=== PATIENT | female | born 1955 | race Caucasian/White ===

== ENCOUNTER 2018-01-20 05:48 | Day surgery (SDC) | payer MEDICARE, OTHER ==
[2018-01-20 06:30] VITALS: TEMP 97.6; O2SAT 97
[2018-01-20] MEDS ORDERED: Propofol 10 mg/ml Inj (20 ML) ONE ×2 (07:22→08:23)
[2018-01-20] MEDS ORDERED: Midazolam 2 MG/2 ML VIAL ONE ×2 (07:22→08:07)
[2018-01-20] MEDS ORDERED: Bupivacaine HCl 0.5% PF (30 ml) Inj ONE (07:24)
[2018-01-20] MEDS ORDERED: Lidocaine 2% MPF (5 ml) Inj ONE (07:25)
[2018-01-20] MEDS ORDERED: ceFAZolin 1 gm in NS 2 GM/200 ML BAG IVPB ONE (07:25)
[2018-01-20] MEDS ORDERED: HYDROmorphone 0.5 mg/0.5 ml ISec IVP PRN (09:09)
--- NOTE | 2018-01-20 09:10 | PCM.SURG1 ---
Surgeon's Initial Post Op Note - Surgeon's Notes Surgeon: Dr. Diallo Laboratory Coordinator: Praneeth Beaulieu PGY-3 Type of Anesthesia: IV Sedation, Local Pre-Operative Diagnosis: Left foot 2nd, 3rd digits hammer toe deformity, nerve entrapment between 3rd and 4th digit inter sapce, 4th digit hammer toe deformity Operative Findings: See dictation Post-Operative Diagnosis: same Operation Performed: Left foot 2nd and 3rd digit hammer toe correction with k wire, nerve decompression of 3rd interdigit space of left foot, 4th extensor tendon tenotomy Specimen/Specimens Removed: left foot 2nd and 3rd digit bone Estimated Blood Loss: EBL {In ML}: 3 Blood Products Given: N/A Drains Used: No Drains Post-Op Condition: Good Date of Surgery/Procedure: 01/20/18 Time of Surgery/Procedure: 08:00
[2018-01-20] MEDS ORDERED: Oxycodone/Acetaminophen 5/325 mg Tab PO PRN ×2 (09:13)
--- NOTE | 2018-01-20 10:24 | RAD ---
PROCEDURE: Left Foot Radiographs. HISTORY: s/p left foot sx COMPARISON: None. FINDINGS: BONES: No acute fractures identified at the s/p arthrodesis of the interphalangeal joints of the 2nd and 3rd digits transfixed by solitary wires in each digit. Diffuse osteopenia suggests osteoporosis. Remaining joint reflect degenerative sclerosis diffusely throughout the do's and remaining joints of the remainder of the foot. Moderate soft tissue edema is seen throughout the forefoot best appreciated in the lateral view. . JOINTS: As above. SOFT TISSUES: As above. OTHER FINDINGS: None. IMPRESSION: Status post arthrodesis of the 2nd and 3rd digit proximal and distal interphalangeal joints. No no fracture or spondylolisthesis identified. Diffuse osteopenia suggests osteoporosis a degenerative changes are as described above.
--- NOTE | 2018-01-20 11:46 | CP.PCM.CON ---
History of Present Illness - History of Present Illness History of Present Illness: Orthopedic consultation Dr. Amador 62F complains of right middle finger pain after she jammed it in SDS moving onto stretcher pre op. She says her finger still hurts, and she says she can not straighten in. No prior finger pain or injury. She says prior to today, she had normal function fo her finger. RHD. Patient underwent hammertoe surgery with Dr. Gaming today. Review of Systems - Review of Systems All systems: reviewed and no additional remarkable complaints except - Musculoskeletal Musculoskeletal: As Per HPI Past Patient History - Past Medical History & Family History Past Medical History?: Yes Past Family History: Reviewed and not pertinent - Past Social History Smoking Status: Current Some Days Smoker - PULMONARY Hx Respiratory Disorders: Yes Hx Asthma: Yes (NEVER HOSPITALIZED) - HEENT Hx HEENT Problems: Yes Hx Glaucoma: Yes - ENDOCRINE/METABOLIC Hx Endocrine Disorders: Yes Other/Comment: HX: RECENT RIGHT THYROID NODULE-BEING WATCHED- NO BIOPSY YET( TODAY IS 01/13/18) - HEMATOLOGICAL/ONCOLOGICAL Hx Blood Disorders: Yes Hx Hepatitis C: Yes (TREATMENT DONE) - INTEGUMENTARY Hx Dermatological Problems: Yes Other/Comment: HX: "SORES IN MOUTH/LIPS ON AND OFF-I THINK IT'S HERPES THEY SAY( -NO SORES PRESENTLY 01/13/18). HX: CYSTS IN BREAST BILAT. - MUSCULOSKELETAL/RHEUMATOLOGICAL Hx Musculoskeletal Disorders: Yes Hx Fractures: Yes (1ST TOE LEFT FOOT) Other/Comment: HX: HEEL SPUR LEFT FOOT. HX: PAINFUL TOES LEFT FOOT AFTER "CYST REMOVED FROM BOTTOM OF FOOT NEAR TOES" - GASTROINTESTINAL Hx Gastrointestinal Disorders: Yes Hx Gall Bladder Disease: Yes Hx Gastritis: Yes - PSYCHIATRIC Hx Psychophysiologic Disorder: Yes Hx Anxiety: Yes Hx Depression: Yes - SURGICAL HISTORY Hx Surgeries: Yes Hx Breast Biopsy: Yes (BILAT.-NO CANCER) Hx Cholecystectomy: Yes Hx Orthopedic Surgery: Yes Other/Comment: HX: SURGERY LEWFT FOOTFOR HEEL SPUR. HX: SURGERY LEFT 1ST TOE FX. -NO METAL IN PLACE. HX: COLON POLYPECTOMY - ANESTHESIA Hx Anesthesia: Yes Hx Anesthesia Reactions: No Hx Malignant Hyperthermia: No Has any member of the family had a problem w/ anesthesia?: No Meds Allergies/Adverse Reactions: Allergies Allergy/AdvReac Type Severity Reaction Status Date / Time aspirin AdvReac Severe NAUSEA Verified 01/13/18 09:05 seafood Allergy SWELLING Uncoded 01/20/18 06:13 - Medications Medications: Current Medications Acetaminophen (Tylenol 325mg Tab) 650 mg PO Q6 PRN PRN Reason: Pain, Mild (1-3) Oxycodone/Acetaminophen (Percocet 5/325 Mg Tab) 1 tab PO Q4H PRN PRN Reason: Pain, moderate (4-7) Stop: 01/23/18 09:14 Oxycodone/Acetaminophen (Percocet 5/325 Mg Tab) 2 tab PO Q4H PRN PRN Reason: Pain, severe (8-10) Stop: 01/23/18 09:14 Physical Exam - Constitutional Appears: Well, No Acute Distress - Head Exam Head Exam: ATRAUMATIC - Neck Exam Neck exam: Positive for: Full Rom - Respiratory Exam Respiratory Exam: NORMAL BREATHING PATTERN - Cardiovascular Exam Additional comments: +radial pulse cap refill <2 sec right long finger - Extremities Exam Additional comments: sensation intact DIP joint right middle finger in flexed position TTP to middle finger DIP joint and ring finger DIP joint, minimal swelling to middle DIP joint, no erythema, skin intact unable to actively extend DIP joint middle finger, can extend against resistance at PIP joint extension intact to ring finger, no swelling flexion intact to MCP/DIP/PIP joints - Neurological Exam Neurological exam: Alert, Oriented x3 - Psychiatric Exam Psychiatric exam: Normal Affect, Normal Mood - Skin Skin Exam: Dry, Intact, Normal Color, Warm Results - Vital Signs Recent Vital Signs: Last Vital Signs Temp 97.6 F 01/20/18 05:55 Pulse 68 01/20/18 05:55 Resp 20 01/20/18 05:55 BP 122/79 01/20/18 05:55 Pulse Ox 97 01/20/18 05:55 - Impressions Impression: RIght hand 3 views reviewed AP/LAt/oblique however middle finger was left in flexed position so no true AP of finger. No fracture or dislocation appreciated. Assessment & Plan (1) Mallet deformity of right middle finger Assessment and Plan: splinted in hyperextension advised patient that she will require a period of prolonged immobilization vs surgery to regain extension of finger, and follow up with orthopedic surgeon as outpatient is necessary to avoid permanent deformity elevation keep splint intact at all times, do not let finger flex Dr. Amador recommends f/u with hand specialist within one week, discussed with patient and she agrees to plan d/w Dr. Amador, agrees with above Status: Acute (2) Sprain of interphalangeal joint of right ring finger Assessment and Plan: mild, no immobilization indicated Status: Acute
[2018-01-20 12:33] VITALS: RESP 18
--- NOTE | 2018-01-20 13:43 | RAD ---
Right hand 3rd digit three views History: Pain. Comparison: None available. Findings: Soft tissue swelling at the level of the 3rd digit dorsally. Fixed flexion at the level of the right 3rd DIP joint space. No evidence of acute displaced fracture or dislocation. Narrowing of the 2nd through 5th PIP and DIP joint spaces. Negative ulnar variance. Degenerative changes of the radiocarpal joint space. Impression: Soft tissue swelling at the level of the 3rd digit dorsally. Fixed flexion at the level of the right 3rd DIP joint space. No evidence of acute displaced fracture or dislocation. Narrowing of the 2nd through 5th PIP and DIP joint spaces. Negative ulnar variance. Degenerative changes of the radiocarpal joint space. If pain persists, consider further evaluation with MRI.
[2018-01-20 13:52] VITALS: BP 132/55; PULSE 62
--- NOTE | 2018-01-20 22:37 | PCM.OP ---
Operative Report - Operative Report Date of Surgery/Procedure: 01/20/18 Time of Surgery/Procedure: 08:00 Surgeon: Dr. Yoel DPM Acoustics Teacher: Praneeth Beaulieu PGY-3 Anesthesia/Sedation: IV sedation with Local Pre-Operative Diagnosis: #1. Left foot painful 2nd digit hammertoe deformity # 2. Left foot painful 3rd digit hammertoe deformity #3. Left foot painful 4th digit hammer toe deformity#4. Left foot 3rd inter digit space nerve entrapment Post-Operative Diagnosis: #1. Left foot painful 2nd digit hammertoe deformity # 2. Left foot painful 3rd digit hammertoe deformity #3. Left foot painful 4th digit hammer toe deformity#4. Left foot 3rd inter digit space nerve entrapment Indication for Surgery: The patient is a 62 year-old female with the above diagnoses. The patient has exhausted conservative treatment at this time and now requests surgical intervention. The patient signed the consent after careful explanation of risks, benefits, complication and alternatives for surgical procedure. No guarantees were given nor implied. 2 grams Ancef IV were given to the pt hour prior to the procedure. NPO status was confirmed prior to taking pt to the OR. Operative Findings: The patient was brought to the operating room and placed on the operating room table in supine position. A well-padded pneumatic ankle tourniquet was placed to the patient's left ankle in a supramalleolar position. After induction of IV sedation, the patient received a total of 17 mL of 1:1 mixture of 0.5% Marcaine and 2% lidocaine plain in local block fashion to the right foot. Once local anesthesia was achieved, the left foot was then prepped and draped in usual sterile manner. Esmarch was utilized to exsanguinate the patient's left foot. Pneumatic ankle tourniquet was then inflated to 250 mmHg and procedure began. Procedure/Operation Description: #1. Left foot 2nd digit hammer toe correction with a k wire and 2nd MPJ releaseAttention was then directed to the dorsal aspect of the second digit left foot where a linear longitudinal incision was made overlying the metatarsalphalangeal joint of the 2nd digit. The incision was deepened through subcutaneous tissue with care being taken to identify and retract all vital neurovascular structures. All bleeders were cauterized and ligated as necessary. At this time, a transverse tenotomy and capsulotomy was performed to the proximal interphalangeal joint of the second digit, left foot. The head of the proximal phalanx was then freed of its capsular and ligamentous attachments. Next utilizing an oscillating saw, the head of the proximal phalanx was resected and passed from the operative site. The wound was then flushed with copious amount of sterile normal saline. At this time, a transverse tenotomy and capsulotomy was performed to the 2nd metatarsalphalangeal joint left foot. Utilizing Mcglamry elevator, the head of the 2nd metatarsal was then freed of its capsular and ligamentous attachments. The wound was then flushed with copious amount of sterile normal saline. Next, a 0.045 inch K-wire was driven from the base of the proximal phalanx exiting the distal aspect of the third digit. The K-wire was then retrograded proximally into the remaining aspect of the metatarsal. Correction of the deformity was assessed at this time and noted to be excellent. Distal end of proximal extensor tendon stump and proximal end of distal extensor tendon stump were reapproximated and sutured with #3-0 vicryl. Skin was reapproximated and sutured with #4-0 Prolene. #2. Left foot 3rd digit hammer toe correction with a k wireAttention was then directed to the dorsal aspect of the 3rd digit left foot where a linear longitudinal incision was made overlying the proximal interphalangeal joint of the 3rd digit. The incision was deepened through subcutaneous tissue with care being taken to identify and retract all vital neurovascular structures. All bleeders were cauterized and ligated as necessary. At this time, a transverse tenotomy and capsulotomy was performed to the proximal interphalangeal joint of the 3rd digit, left foot. The head of the proximal phalanx was then freed of its capsular and ligamentous attachments. Next utilizing an oscillating saw, the head of the proximal phalanx was resected and passed from the operative site. The wound was then flushed with copious amount of sterile normal saline. Next, a 0.045 inch K-wire was driven from the base of the middle phalanx exiting the distal aspect of the 3rd digit. The K-wire was then retrograded proximally into the remaining aspect of the proximal phalanx. Correction of the deformity was assessed at this time and noted to be excellent. Distal end of proximal extensor tendon stump and proximal end of distal extensor tendon stump were reapproximated and sutured with #3-0 Vicryl. Skin was reapproximated and sutured with #4-0 Prolene. #3. Left foot 4th extensor tendon tenotomy Attention was directed to the 4th MPJ of left foot. Utilizing #15 blade, approximately 1 cm linear longitudinal incision was made at the lateral aspect of the extensor tendon and the tendon was transversely tenotomized. The surgical site was flushed with sterile normal saline. The skin was reapproximated with #4-0 Prolene. #4. Left foot 3rd inter digit space nerve depression Attention was directed to the 3rd inter digit space of left foot. Utilizing #15 blade, approximately 1 cm linear longitudinal incision was made. The incision was deepened through subcutaneous tissue with care being taken to identify and retract all vital neurovascular structures. All bleeders were cauterized and ligated as necessary. Next, utilizing dissecting scissors deep transverse intermetatarsal ligament was transected. The surgical site was flushed with sterile normal saline. The skin was reapproximated with #4-0 Monocryl.The surgical site was infiltrated with 10ml of 0.5% Marcaine plain. The surgical site was dressed with Xeroform, 4x4, cling and ANDREW. Estimated Blood Loss: <3cc Blood Replaced: None Complications: None Specimen: Left foot 2nd and 3rd digit bone Discharge & Condition: Postoperative Condition: The patient tolerated the anesthesia and procedure well and was escorted to the recovery room with vital signs stable and neurovascular status intact to the left foot. This patient will follow up with .
== END 2018-01-20 13:00 | disposition home or self-care (01) ==
LOC: C.SDS 05:48
PROVIDERS: ATTEND Podiatrist Foot & Ankle Surgery
DX: M20.42 Other hammer toe(s) (acquired), left foot (principal)
CPT/HCPCS: 28232; 28285; 73140; 73620; 88305; J0690; J2001; J2250; J2405; J2704; J2765; J3010